=== PATIENT | female | born 1995 | race African-American/Black ===

== ENCOUNTER → 2024-03-31 | Outpatient (REF) | LOC: M EMP 16:25 | PROVIDERS: ATTEND Family Medicine | DX: Z02.89 Encounter for other administrative examinations (principal) ==

== ENCOUNTER 2025-02-09 10:13 | Emergency (ER) | payer OTHER ==
[~2025-02-09] VITALS: Ht 160 cm; Wt 78.3 kg
[2025-02-09] MEDS: ACETAMINOPHEN 500 MG TAB PO ONE (11:54)
[2025-02-09] MEDS ORDERED: AMOX500T PO (12:19)
[2025-02-09 12:36] VITALS: BP 108/69; TEMP 99.4; O2SAT 98
== END 2025-02-09 12:45 | disposition home or self-care (01) ==
LOC: M ED 10:13
DX: J02.0 Streptococcal pharyngitis (principal); Z79.2 Long term (current) use of antibiotics

== ENCOUNTER → 2025-09-05 | Outpatient (CLI) | payer OTHER ==
[~2025-09-05] MED LIST: AMOX500T PO
== END ==
LOC: M SOG 07:21
PROVIDERS: ATTEND Neuromusculoskeletal Medicine, Sports Medicine
DX: M25.569 Pain in unspecified knee (principal)